=== PATIENT | female | born 1980 | race Caucasian/White ===

== ENCOUNTER 2020-03-04 23:33 | Emergency (ER) | payer OTHER ==
[~2020-03-04] VITALS: Ht 177.8 cm; Wt 79.8 kg
[2020-03-04 23:48] VITALS: Ht 177.8 cm; Wt 79.8 kg
[2020-03-05 07:53] VITALS: BP 128/82
== END 2020-03-05 07:53 | disposition home or self-care (01) ==
LOC: ED 23:33
DX: S01.511A Laceration without foreign body of lip, initial encounter (principal); F10.129 Alcohol abuse with intoxication, unspecified; J45.909 Unspecified asthma, uncomplicated; Y04.8XXA Assault by other bodily force, initial encounter; Y93.89 Activity, other specified; Y92.89 Other specified places as the place of occurrence of the external cause; Y99.8 Other external cause status